=== PATIENT | female | born 1960 | race Caucasian/White ===

== ENCOUNTER 2020-06-17 10:07 | Day surgery (SDC) | payer OTHER ==
[~2020-06-17] VITALS: Ht 175.3 cm; Wt 85.1 kg
[~2020-06-17 10:07] MED LIST: ACET325T14 PO; ALPR0.5T93 PO; ERTA1VIA IV; FERR325T18 PO; HYDR-1067 PO; LORA-446 PO; METO10TA82 PO; MICA100V3 IV; ONDA4TAB7 PO; PHEN15TA PO; SERT50TA PO; VANC1VIA3 PO
[2020-06-17] MEDS ORDERED: LIDOCAINE 1%, 20ML ONE (10:45)
[2020-06-17] MEDS ORDERED: LIDOCAINE 1%-EPI 1:100K, 20ML ONE (10:45)
[2020-06-17] MEDS ORDERED: SODIUM BICARBONATE 4.2%, 5ML ONE (10:45)
[2020-06-17] MEDS ORDERED: CHLORHEXIDINE 15 ML UDC PO ONE (12:30)
[2020-06-17] MEDS ORDERED: LACTATED RINGERS 1,000 ML IV SCH (12:30)
[2020-06-17 12:37] VITALS: BP 119/81
[2020-06-17] MEDS ORDERED: EPINEPHRINE 1 MG/ML, 1ML ONE (13:39)
[2020-06-17] MEDS ORDERED: BUPIVACAINE/PF 0.5% ONE (13:39)
[2020-06-17] MEDS ORDERED: FENTANYL PF 100 MCG/2ML ONE ×2 (13:42→16:02)
[2020-06-17] MEDS ORDERED: MIDAZOLAM 1 MG/ML, 2ML ONE (13:42)
[2020-06-17] MEDS ORDERED: CEFAZOLIN 1,000 MG ONE (14:10)
[2020-06-17] MEDS ORDERED: PHENYLEPHRINE 10 MG/ML ONE (14:10)
[2020-06-17] MEDS ORDERED: DEXAMETHASONE 4 MG/ML, 1ML ONE (14:10)
[2020-06-17] MEDS ORDERED: ONDANSETRON 2MG/ML, 2ML ONE (14:10)
[2020-06-17] MEDS ORDERED: PROPOFOL 10 MG/ML, 20ML ONE (14:10)
[2020-06-17] MEDS ORDERED: HYDR-1067 PO (15:43)
[2020-06-17] MEDS ORDERED: KETOROLAC 30 MG/1 ML ONE (15:57)
[2020-06-17] MEDS ORDERED: HYDROmorphone 1 MG/ML, 1ML INJ IVPush PRN (16:00)
[2020-06-17] MEDS ORDERED: OXYcodone 5 MG/5 ML ORAL.SOL UDC PO PRN (16:00)
[2020-06-17] MEDS ORDERED: ACETAMINOPHEN 325 MG TABLET PO PRN (16:00)
[2020-06-17] MEDS ORDERED: MEPERIDINE/PF 25MG/0.5ML IVPush PRN (16:00)
[2020-06-17] MEDS ORDERED: KETOROLAC 30 MG/1 ML IV ONE (16:00)
[2020-06-17] MEDS ORDERED: HYDROcodone/APAP 7.5-325MG/15ML UDC PO PRN (16:00)
[2020-06-17] MEDS ORDERED: ONDANSETRON 2MG/ML, 2ML IVPush PRN (16:00)
[2020-06-17] MEDS ORDERED: LORazepam 2 MG/ML, 1ML IVPush PRN (16:00)
[2020-06-17] MEDS ORDERED: PROMETHAZINE 25 MG/ML, 1ML IVPush PRN (16:00)
[2020-06-17] MEDS ORDERED: ACETAMINOPHEN 650 MG/20.3 ML UDC ONE (16:02)
[2020-06-17] MEDS ORDERED: OXYcodone 5 MG/5 ML ORAL.SOL UDC ONE (16:02)
[2020-06-17] MEDS: FENTANYL PF 100 MCG/2ML IV PRN ×2 (16:10→16:18)
[2020-06-17] MEDS ORDERED: THROMBIN 20,000 UNIT VIAL TP ONE (16:58)
== END 2020-06-17 17:05 | disposition home or self-care (01) ==
LOC: SDC 10:07 → EDSTATUS 13:30 → OUT 17:05
PROVIDERS: ATTEND Surgery
DX: C50.412 Malignant neoplasm of upper-outer quadrant of left female breast (principal); N61.0 Mastitis without abscess; F32.9 Major depressive disorder, single episode, unspecified; F17.210 Nicotine dependence, cigarettes, uncomplicated; Z20.822 Contact with and (suspected) exposure to COVID-19; Z17.0 Estrogen receptor positive status [ER+]; Z79.899 Other long term (current) drug therapy; Z98.890 Other specified postprocedural states; Z82.61 Family history of arthritis; Z80.0 Family history of malignant neoplasm of digestive organs; Z80.1 Family history of malignant neoplasm of trachea, bronchus and lung; Z82.3 Family history of stroke
CPT/HCPCS: 19285; 19301; 36415; 38525; 38792; 76098; 80053; 85025; 85610; 88305; 88333; 93005; A9541; C1729; J0171; J0690; J1100; J1885; J2250; J2370; J2405; J2704; J3010; J7120; U0003

== ENCOUNTER 2020-07-02 08:27 | Outpatient (CLI) | payer OTHER ==
[~2020-07-02 08:27] MED LIST changes: -HYDR-1067 PO; +HYDR-2214 PO
== END 2020-07-02 23:59 | disposition home or self-care (01) ==
LOC: ROC 08:27
PROVIDERS: ATTEND Radiology Radiation Oncology
DX: C50.112 Malignant neoplasm of central portion of left female breast (principal); F32.9 Major depressive disorder, single episode, unspecified; Z17.0 Estrogen receptor positive status [ER+]; Z87.891 Personal history of nicotine dependence; Z79.899 Other long term (current) drug therapy; Z98.890 Other specified postprocedural states
CPT/HCPCS: 99214; G0463